=== PATIENT | male | born 1985 | race African-American/Black ===

== ENCOUNTER 2018-03-21 12:30 | Emergency (ER) | payer MEDICARE, MEDICAID ==
[~2018-03-21] VITALS: Ht 165.1 cm; Wt 59.0 kg
[2018-03-21] MEDS ORDERED: BACITRACIN-P28.35 GM TP (13:15)
--- NOTE | 2018-03-21 13:15 | Emergency Room Report ---
History of Present Illness General Chief Complaint: Wound Recheck/Suture Removal Present Illness HPI 32-year-old male presents emergency department complaining of 10 out of 10 in severity dysuria 2 days. Patient also reports that he has andria any removal in the anterior right thigh that were placed over 2 weeks ago. Patient reports tenderness as well to the previously close lacerations some mild erythema. Patient denies fevers or chills, low back pain, abdominal pain or tenderness. He reports history of frequent UTIs as he has only one kidney. . Allergies: Coded Allergies: No Known Allergies (Unverified , 03/21/18) Patient History Past Medical History: see triage record Past Surgical History: none Pertinent Family History: none Reviewed Nursing Documentation: PMH: Agreed; PSxH: Agreed Review of Systems All Other Systems: negative except mentioned in HPI Physical Exam Vital Signs Date Time Temp Pulse Resp B/P (MAP) Pulse Ox O2 Delivery O2 Flow Rate FiO2 03/21/18 12:41 98.2 81 18 106/64 97 Room Air 98.2 Sp02 EP Interpretation: reviewed, normal General Appearance: no apparent distress, alert, GCS 15, non-toxic Head: normocephalic, atraumatic Eyes: bilateral eye normal inspection, bilateral eye PERRL ENT: hearing grossly normal, normal voice Neck: full range of motion Respiratory: lungs clear, normal breath sounds, speaking full sentences Cardiovascular #1: regular rate, rhythm Gastrointestinal: normal bowel sounds, non tender, soft Genitourinary: normal inspection, no CVA tenderness Musculoskeletal: back normal, gait/station normal, normal range of motion, non- tender Neurologic: alert, oriented x3, responsive, motor strength/tone normal, sensory intact, speech normal, grossly normal Psychiatric: judgement/insight normal Skin: no rash, warm/dry, well hydrated, other - erythema and increased temperature to palpation to the medial aspect of the previously stapled laceration, [address] Lymphatic: no adenopathy Medical Decision Making PA Attestation Dr. Novoa is my supervising physician whom patient management has been discussed with. Diagnostic Impression: Primary Impression: UTI (urinary tract infection) Qualified Codes: N30.01 - Acute cystitis with hematuria Additional Impressions: Removal of andria Cellulitis Qualified Codes: L03.115 - Cellulitis of right lower limb ER Course 32-year-old male presents emergency department complaining of 10 out of 10 in severity dysuria 2 days. Patient also reports that he has andria any removal in the anterior right thigh that were placed over 2 weeks ago. Patient reports tenderness as well to the previously close lacerations some mild erythema. Patient denies fevers or chills, low back pain, abdominal pain or tenderness. He reports history of frequent UTIs as he has only one kidney. . Ddx considered but are not limited to laceration, tendon injury, cellulitis, dehiscence. Vital signs: are WNL, pt. is afebrile H&PE are most consistent with: healed laceration of the right anterior thigh with some mild cellulitis medially. ORDERS: -UA: Nitrite positive - UTI indicated ED INTERVENTIONS: - 3 [place] removed. -Pyridium PO DISCHARGE: At this time pt. is stable for d/c to home. Will provide printed patient care instructions, and any necessary prescriptions. Care plan and follow up instructions have been discussed with the patient prior to discharge. Labs Test 03/21/18 13:30 Urine Color Brown Urine Appearance Slightly cloudy Urine pH 6 (4.5-8.0) Urine Specific [place] 1.025 (1.005-1.035) Urine Protein 2+ (NEGATIVE) Urine Glucose (UA) Negative (NEGATIVE) Urine Ketones 1+ (NEGATIVE) Urine Blood 3+ (NEGATIVE) Urine Nitrite Positive (NEGATIVE) Urine Bilirubin Negative (NEGATIVE) Urine Urobilinogen 4 MG/DL (0.0-1.0) Urine Leukocyte Esterase 3+ (NEGATIVE) Urine RBC 2-4 /HPF (0 - 0) Urine WBC 60-80 /HPF (0 - 0) Urine Squamous Epithelial Cells None /LPF (NONE/OCC) Urine Transitional Epithelial Cells Many /LPF (NONE) Urine Bacteria Few /HPF (NONE) Last Vital Signs Date Time Temp Pulse Resp B/P (MAP) Pulse Ox O2 Delivery O2 Flow Rate FiO2 03/21/18 12:41 98.2 81 18 106/64 97 Room Air 98.2 Disposition: HOME, SELF-CARE Condition: Stable Scripts Trimethoprim/Sulfamethoxazole 160/800* (BACTRIM DS TABLET*) 1 Each Tablet 1 TAB ORAL TWICE A DAY for 7 Days, #14 TAB Prov: Ritu Rodriguez 03/21/18 Mupirocin* (MUPIROCIN*) 22 Gm Oint...g. 1 APPLIC TOPIC THREE TIMES A DAY, #22 GM Prov: Ritu Rodriguez 03/21/18 Bacitracin/Polymyxin B Sulfate (BACITRACIN-POLYMYXIN OINTMENT) 28.35 Gm Oint...g. 1 APPLIC TP BID, #22 GM Prov: Ritu Rodriguez 03/21/18 Patient Instructions: Urinary Tract Infection, [id number], Wound Closure Removal Additional Instructions: Take medications as directed. Follow up with a Primary Care Provider in 3-5 days, even if your symptoms have resolved. --Please review list of primary care clinics, if you do not already have a primary care provider Return sooner to ED if new symptoms occur, or current symptoms become worse. - Please note that this Emergency Department Report was dictated using Directworkssupervisor shuttle preparation technology software, occasionally this can lead to erroneous entry secondary to interpretation by the dictation equipment. Ritu Rodriguez Mar 21, 2018 13:15
[2018-03-21] MEDS ORDERED: Phenazopyridine 200mg tab ORAL ONE (13:30)
[2018-03-21 13:42] LABS: APPEARANCE,URINE SLIGHTLY CLOUDY; BILIRUBIN, URINE NEGATIVE (NEGATIVE); GLUCOSE, URINE (UA) NEGATIVE (NEGATIVE); KETONES,URINE 1+ (NEGATIVE); LEUKOCYTE ESTERASE ,URINE 3+ (NEGATIVE); NITRITE,URINE POSITIVE (NEGATIVE); PH,URINE 6 (4.5-8.0); PROTEIN,URINE 2+ (NEGATIVE); UROBILINOGEN,URINE 4 MG/DL (0.0-1.0)
[2018-03-21 13:47] LABS: COLOR,URINE BROWN
[2018-03-21] MEDS ORDERED: Bacitracin Oint UD TOPIC ONE ×2 (13:57→14:15)
[2018-03-21] MEDS ORDERED: BACTRIM DS TAB1 EAC1 ORAL (13:58)
[2018-03-21] MEDS ORDERED: MUPIROCIN22 GM TOPIC (13:58)
[2018-03-21 14:13] VITALS: BP 110/80
[2018-03-21 14:15] VITALS: BP 110/80
== END 2018-03-21 14:15 | disposition home or self-care (01) ==
LOC: EMR 13:11
DX: N39.0 Urinary tract infection, site not specified (principal); L03.115 Cellulitis of right lower limb; Z48.02 Encounter for removal of sutures
CPT/HCPCS: 81003; 87086; 87181; 99283

== ENCOUNTER 2018-04-26 03:56 | Emergency (ER) | payer MEDICARE, MEDICAID ==
[~2018-04-26] VITALS: Ht 165.1 cm; Wt 59.0 kg
[~2018-04-26 03:56] MED LIST: BACITRACIN-P28.35 GM TP; BACTRIM DS TAB1 EAC1 ORAL; MUPIROCIN22 GM TOPIC
[2018-04-26 04:10] VITALS: BP 104/76
[2018-04-26] MEDS ORDERED: CIPROFLOXACIN500 M2 ORAL (04:13)
--- NOTE | 2018-04-26 04:13 | Emergency Room Report ---
History of Present Illness General Chief Complaint: Pain Source: Patient Present Illness [facility] This 32-year-old male with no significant past medical history. He presents with chief complaint of groin pain. Onset today. Also some slight dysuria. He was here in February and grew out Klebsiella in his urine. No discharge. Is sexually active. No history of STD. Denies any fever or chills. Denies any nausea vomiting. No testicular pain. Allergies: Coded Allergies: No Known Allergies (Unverified , 03/21/18) Patient History Past Medical History: see triage record, old chart reviewed Past Surgical History: none Pertinent Family History: none Social History: Denies: smoking Immunizations: other Reviewed Nursing Documentation: PMH: Agreed; PSxH: Agreed Nursing Documentation-PMH Past Medical History: No History, Except For Review of Systems Eye: Denies: eye pain, blurred vision ENT: Denies: ear pain, nose congestion, throat swelling Respiratory: Denies: cough, shortness of breath Cardiovascular: Denies: chest pain, palpitations Gastrointestinal: Denies: abdominal pain, diarrhea, nausea, vomiting Genitourinary: Reports: dysuria Musculoskeletal: Denies: back pain, joint pain Skin: Denies: rash Neurological: Denies: headache, numbness Endocrine: Denies: increased thirst, increased urine Hematologic/Lymphatic: Denies: easy bruising All Other Systems: negative except mentioned in HPI Physical Exam Vital Signs Date Time Temp Pulse Resp B/P (MAP) Pulse Ox O2 Delivery O2 Flow Rate FiO2 04/26/18 03:57 97.9 89 18 104/76 97 Room Air vitals normal Sp02 EP Interpretation: reviewed, normal General Appearance: well appearing, no apparent distress, alert Head: normocephalic, atraumatic Eyes: bilateral eye PERRL, bilateral eye EOMI ENT: hearing grossly normal, normal pharynx Neck: full range of motion, supple, no meningismus Respiratory: chest non-tender, lungs clear, normal breath sounds Cardiovascular #1: regular rate, rhythm, no murmur Gastrointestinal: normal bowel sounds, non tender, no mass, no organomegaly, no bruit, non-distended Genitourinary: no CVA tenderness, penis normal, scrotum normal, other - Inguinal adenopathy. Musculoskeletal: back normal, gait/station normal, normal range of motion Psychiatric: mood/affect normal Skin: warm/dry Medical Decision Making Diagnostic Impression: Primary Impression: UTI (urinary tract infection) Qualified Codes: N30.00 - Acute cystitis without hematuria ER Course Patient presents with groin pain and dysuria. This may be secondary to STD. I treated for chlamydia with azithromycin. Patient grew out Klebsiella sensitive to Cipro. I will put him on Cipro because this will also cover for gonorrhea. No evidence of pyelonephritis or torsion. Last Vital Signs Date Time Temp Pulse Resp B/P (MAP) Pulse Ox O2 Delivery O2 Flow Rate FiO2 04/26/18 03:57 97.9 89 18 104/76 97 Room Air Status: improved Disposition: HOME, SELF-CARE Condition: Stable Scripts Ciprofloxacin Hcl* (CIPROFLOXACIN HCL*) 500 Mg Tablet 500 MG ORAL Q12H, #14 TAB 0 Refills Prov: Zachery Hill MD 04/26/18 Additional Instructions: Follow-up with your doctor in 7 days. Return if symptom worsen. Zachery Hill MD Apr 26, 2018 04:13
[2018-04-26] MEDS ORDERED: Azithromycin 250mg tab ORAL ONE (04:15)
[2018-04-26 04:25] VITALS: BP 121/80
== END 2018-04-26 04:31 | disposition home or self-care (01) ==
LOC: EMR 04:17
DX: N39.0 Urinary tract infection, site not specified (principal)
CPT/HCPCS: 87086; 99282

== ENCOUNTER 2018-06-09 01:05 | Emergency (ER) | payer MEDICARE, MEDICAID ==
[~2018-06-09] VITALS: Ht 165.1 cm; Wt 59.0 kg
[~2018-06-09 01:05] MED LIST changes: +CIPROFLOXACIN500 M2 ORAL
[2018-06-09 01:37] VITALS: BP 117/75
[2018-06-09 02:06] LABS: APPEARANCE,URINE CLOUDY; BILIRUBIN, URINE NEGATIVE (NEGATIVE); GLUCOSE, URINE (UA) NEGATIVE (NEGATIVE); KETONES,URINE 1+ (NEGATIVE); LEUKOCYTE ESTERASE ,URINE 3+ (NEGATIVE); NITRITE,URINE NEGATIVE (NEGATIVE); PH,URINE 6 (4.5-8.0); PROTEIN,URINE 2+ (NEGATIVE); UROBILINOGEN,URINE 4 MG/DL (0.0-1.0)
[2018-06-09 02:12] LABS: COLOR,URINE YELLOW
[2018-06-09] MEDS ORDERED: Acetaminophen 500mg (ES) tab ORAL ONE (02:15)
[2018-06-09] MEDS ORDERED: PHENAZOPYRIDIN100 MG ORAL (02:49)
[2018-06-09] MEDS ORDERED: CIPROFLOXACIN500 M2 ORAL (02:49)
[2018-06-09] MEDS ORDERED: TYLENOL EXTRA500 MG ORAL (02:49)
[2018-06-09 02:59] VITALS: BP 117/75
--- NOTE | 2018-06-09 05:17 | Emergency Room Report ---
History of Present Illness General Chief Complaint: Pelvic Pain Source: Patient Present Illness HPI 32-year-old male presents ED for evaluation. Complaining of suprapubic pain since last night. Sharp, 8 out of 10, nonradiating. Worse with urination. Most dysuria. Denies any discharge. States he has one kidney and has had frequent UTIs. Feels like a UTI. Denies fevers or chills. Denies flank pain. Denies nausea or vomiting. No other aggravating relieving factors. 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 Review of Systems All Other Systems: negative except mentioned in HPI Physical Exam Vital Signs Date Time Temp Pulse Resp B/P (MAP) Pulse Ox O2 Delivery O2 Flow Rate FiO2 06/09/18 01:13 98.1 97 20 117/75 99 Room Air Sp02 EP Interpretation: reviewed, normal General Appearance: no apparent distress, alert, GCS 15, non-toxic Head: normocephalic, atraumatic Eyes: bilateral eye normal inspection, bilateral eye PERRL ENT: hearing grossly normal, normal pharynx, no angioedema, normal voice Neck: full range of motion, supple/symm/no masses Respiratory: chest non-tender, lungs clear, normal breath sounds, speaking full sentences Cardiovascular #1: regular rate, rhythm, no edema Cardiovascular #2: 2+ carotid (R), 2+ carotid (L), 2+ radial (R), 2+ radial (L) , 2+ dorsalis pedis (R), 2+ dorsalis pedis (L) Gastrointestinal: normal bowel sounds, soft, non-distended, no guarding, no rebound, tenderness - surapubic Rectal: deferred Genitourinary: normal inspection, no CVA tenderness Musculoskeletal: back normal, gait/station normal, normal range of motion, non- tender Neurologic: alert, oriented x3, responsive, motor strength/tone normal, sensory intact, speech normal Psychiatric: judgement/insight normal, memory normal, mood/affect normal, no suicidal/homicidal ideation Reflexes: 3+ bicep (R), 3+ bicep (L), 3+ tricep (R), 3+ tricep (L), 3+ knee (R) , 3+ knee (L) Skin: normal color, no rash, warm/dry, well hydrated Lymphatic: no adenopathy Medical Decision Making Diagnostic Impression: Primary Impression: UTI (urinary tract infection) Qualified Codes: N39.0 - Urinary tract infection, site not specified ER Course Hospital Course 32-year-old male presents to ED complaining of dysuria with suprapubic pain. Differential diagnoses include: UTI, cystitis, pyelonephritis Clinical course Patient placed on stretcher. After initial history and physical I ordered UA UA + bacteria. Patient had been here previously. Culture shows sensitivity to Cipro. I'll prescribe Cipro. I'll also provide urology referral. Safe for discharge or close outpatient follow-up Diagnosis - UTI Stable and discharged home with prescriptions for Rx Cipro. Instructed to followup with PMD. Return to ED if symptoms recur or worsen Labs Test 06/09/18 01:57 Urine Color Yellow Urine Appearance Cloudy Urine pH 6 (4.5-8.0) Urine Specific [place] 1.025 (1.005-1.035) Urine Protein 2+ (NEGATIVE) Urine Glucose (UA) Negative (NEGATIVE) Urine Ketones 1+ (NEGATIVE) Urine Blood 2+ (NEGATIVE) Urine Nitrite Negative (NEGATIVE) Urine Bilirubin Negative (NEGATIVE) Urine Urobilinogen 4 MG/DL (0.0-1.0) Urine Leukocyte Esterase 3+ (NEGATIVE) Urine RBC 5-10 /HPF (0 - 0) Urine WBC Tntc /HPF (0 - 0) Urine Squamous Epithelial Cells Few /LPF (NONE/OCC) Urine Bacteria Many /HPF (NONE) Last Vital Signs Date Time Temp Pulse Resp B/P (MAP) Pulse Ox O2 Delivery O2 Flow Rate FiO2 06/09/18 02:59 97.6 78 20 117/75 99 Room Air Status: improved Disposition: HOME, SELF-CARE Condition: Stable Scripts Acetaminophen* (TYLENOL EXTRA STRENGTH*) 500 Mg Tablet 500 MG ORAL Q8H PRN for Prn Headache/Temp > 101, #30 TAB 0 Refills Prov: Shaheed Dowling MD 06/09/18 Phenazopyridine Hcl* (PYRIDIUM*) 100 Mg Tablet 100 MG ORAL THREE TIMES A DAY for 3 Days, TAB Prov: Shaheed Dowling MD 06/09/18 Ciprofloxacin Hcl* (CIPROFLOXACIN HCL*) 500 Mg Tablet 500 MG ORAL Q12H, #14 TAB 0 Refills Prov: Shaheed Dowling MD 06/09/18 Referrals: Nam Good M.D. Patient Instructions: Dysuria Shaheed Dowling MD Jun 09, 2018 05:17
== END 2018-06-09 03:01 | disposition home or self-care (01) ==
LOC: EMR 01:55
DX: N39.0 Urinary tract infection, site not specified (principal); Z90.5 Acquired absence of kidney
CPT/HCPCS: 81003; 87086; 99283

== ENCOUNTER 2018-07-29 21:50 | Emergency (ER) | payer MEDICARE, MEDICAID ==
[~2018-07-29] VITALS: Ht 165.1 cm; Wt 57.6 kg
[~2018-07-29 21:50] MED LIST changes: +PHENAZOPYRIDIN100 MG ORAL; +TYLENOL EXTRA500 MG ORAL
[2018-07-29 22:00] VITALS: BP 102/68
--- NOTE | 2018-07-29 22:00 | NUR ---
ED Nurse Note: pt walked in c/o front tooth ache, pt states he has been having pain for a while but worsen today. noted half tooth with brown spots, with tenderness, no swelling, no drainage noted. will cont monitor.
[2018-07-29] MEDS ORDERED: NKM (22:01)
[2018-07-29] MEDS ORDERED: AMOXICILLIN500 MG ORAL (22:26)
[2018-07-29] MEDS ORDERED: HYDROCODON-ACE1 EA15 ORAL (22:26)
[2018-07-29] MEDS ORDERED: IBUPROFEN600 MG ORAL (22:26)
--- NOTE | 2018-07-29 22:27 | Emergency Room Report ---
History of Present Illness General Chief Complaint: Toothache Source: Patient Present Illness HPI Is a 32-year-old male with no significant past medical history. He presents with chief complaint of dental pain and facial pain. Onset yesterday. Pain is localized to the right facial area. Radiating to his head. Pain is 9 out of 10 sharp and throbbing in nature. No nausea no vomiting. No fever chills. 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 Hx Neurological Problems: Yes - scoliosis Review of Systems Eye: Denies: eye pain, blurred vision ENT: Denies: ear pain, nose congestion, throat swelling Respiratory: Denies: cough, shortness of breath Cardiovascular: Denies: chest pain, palpitations Gastrointestinal: Denies: abdominal pain, diarrhea, nausea, vomiting Musculoskeletal: Denies: back pain, joint pain Skin: Denies: rash Neurological: Denies: headache, numbness Endocrine: Denies: increased thirst, increased urine Hematologic/Lymphatic: Denies: easy bruising All Other Systems: negative except mentioned in HPI Physical Exam Vital Signs Date Time Temp Pulse Resp B/P (MAP) Pulse Ox O2 Delivery O2 Flow Rate FiO2 07/29/18 21:56 98.2 92 16 102/68 96 Room Air vitals normal Sp02 EP Interpretation: reviewed, normal General Appearance: well appearing, no apparent distress, alert Head: normocephalic, atraumatic Eyes: bilateral eye PERRL, bilateral eye EOMI ENT: hearing grossly normal, normal pharynx, other - No trismus. His right upper central incisor is decayed and broken off. There is mild edema to the gum in that area. Tender to palpation. No palpable abscess. Neck: full range of motion, supple, no meningismus Respiratory: chest non-tender, lungs clear, normal breath sounds Cardiovascular #1: regular rate, rhythm, no murmur Gastrointestinal: normal bowel sounds, non tender, no mass, no organomegaly, no bruit, non-distended Musculoskeletal: back normal, gait/station normal, normal range of motion Psychiatric: mood/affect normal Skin: warm/dry Medical Decision Making Diagnostic Impression: Primary Impression: Dental abscess ER Course Patient with a dental infection/early abscess. At this moment in time, I do not see anything to I&D. Last Vital Signs Date Time Temp Pulse Resp B/P (MAP) Pulse Ox O2 Delivery O2 Flow Rate FiO2 07/29/18 22:00 98.2 94 16 102/68 96 Room Air Status: improved Disposition: HOME, SELF-CARE Condition: Stable Scripts Ibuprofen* (MOTRIN*) 600 Mg Tablet 600 MG ORAL THREE TIMES A DAY, #30 TAB 0 Refills Prov: Zachery Hill MD 07/29/18 Hydrocodone/Acetaminophen 5-325* (HYDROCODONE/ACETAMINOPHEN 5-325*) 1 Each Tablet 1 TAB ORAL Q6H PRN for For Pain, #10 TAB 0 Refills Prov: Zachery Hill MD 07/29/18 Amoxicillin* (AMOXIL*) 500 Mg Capsule 500 MG ORAL THREE TIMES A DAY, #21 CAP Prov: Zachery Hill MD 07/29/18 Additional Instructions: Follow-up with dentist ANNA. Return if symptom worsen. Zachery Hill MD Jul 29, 2018 22:27
[2018-07-29] MEDS ORDERED: Norco 5mg/325mg tab ORAL ONE (22:30)
[2018-07-29 22:36] VITALS: BP 116/68
--- NOTE | 2018-07-29 22:37 | NUR ---
ED Nurse Note: pt cleared to d/c per ER provider order, pt discharge instruction provided w/prescription, pt advised to follow up with Dentist stat, return to ed if s/s worsen or new s/s develop, pt education done via discussion and hand out,wristband removed, pt verbalized understanding and agrees with plan. pt vss, ambulatory w/ steady gait, resp even and unlabored, airway intact, all belongings left with pt. Pt was accompanied by friend and states she will be driving. pt states hx taking norco before and no hx adverse reaction last time
== END 2018-07-29 22:45 | disposition home or self-care (01) ==
LOC: EMR 22:16
DX: K04.7 Periapical abscess without sinus (principal); M41.9 Scoliosis, unspecified
CPT/HCPCS: 99282